=== PATIENT | male | born 1955 | race Caucasian/White ===

== ENCOUNTER 2016-08-29 10:22 | Day surgery (SDC) | payer BC ==
[~2016-08-29] VITALS: Ht 167.6 cm; Wt 57.4 kg
[2016-08-29 10:56] VITALS: Ht 167.6 cm; Wt 57.4 kg
[2016-08-29] MEDS ORDERED: TRAZODONE (11:00)
[2016-08-29 11:11] VITALS: BP 113/66; PULSE 80; RESP 18
[2016-08-29] MEDS ORDERED: MIDAZOLAM 1 MG/ML 2 ML INJ ONE ×2 (11:42)
[2016-08-29] MEDS ORDERED: FENTAnyl 50 MCG/ML VIAL ONE (11:42)
[2016-08-29 12:01] VITALS: BP 102/64; PULSE 66; RESP 18
--- NOTE | 2016-09-06 05:22 | GILP ---
DATE OF PROCEDURE: 08/29/2016 PROCEDURE PERFORMED: Colonoscopy. SURGEON: Anthony Gomez MD INDICATION: The patient is a 61-year-old male undergoing this procedure for screening colonoscopy. The risks of the procedure and related complications, anesthetic risks and alternatives were discussed and informed consent was obtained. DESCRIPTION OF PROCEDURE: The patient was brought to the GI lab, placed in left recumbent position, sedated with Versed and fentanyl with 4 mg Versed and 100 micrograms fentanyl. After optimal sedation, digital examination was done which was normal. The pediatric colonoscope was passed into the rectum, advanced to the sigmoid, descending, transverse colon all the way into the cecum and finally into the terminal ileum. The terminal ileum was normal. The colon was normal. The rest of the colon appeared normal, which was thoroughly inspected while coming out. Retroflexion was done and small skin tag and hemorrhoid was identified. The scope was straightened out and removed with good patient tolerance. IMPRESSION: 1. Small hemorrhoid. 2. Skin tag. 3. Negative all the way into cecum. 4. Negative terminal ileum. 5. Clarity and cleanliness was good. PLAN: 1. Stay on high-fiber diet. 2. Next colonoscope after 10 years. Dictated By: Anthony Gomez MD /edgar/frank /Document#: [id number]
== END 2016-08-29 12:16 | disposition home or self-care (01) ==
LOC: GIL 10:22
PROVIDERS: ATTEND Internal Medicine Gastroenterology
DX: Z12.11 Encounter for screening for malignant neoplasm of colon (principal); K64.4 Residual hemorrhoidal skin tags
CPT/HCPCS: 45378; J2250; J3010; Z7610